=== PATIENT | male | born 1975 ===

== ENCOUNTER 2018-02-18 21:11 | Emergency (ER) | payer SELFPAY ==
[2018-02-18 22:18] VITALS: BP 131/82; PULSE 84; RESP 15; TEMP 98.7; O2SAT 99
--- NOTE | 2018-02-18 22:19 | ED PDOC ---
HPI: General Adult Time Seen by Provider: 02/18/18 22:12 Chief Complaint (Nursing): Abnormal Skin Integrity Chief Complaint (Provider): rash History Per: Patient (42 y/o male here with rash noted on palms and feet that began 1 month ago and became scars on palms of hand. Notes additional similar rash along inguinal region similar to h/o jock itch. Patient has h/o syphilis in past treated 2 years ago.) Past Medical History Reviewed: Historical Data, Nursing Documentation, Vital Signs Vital Signs: Last Vital Signs Temp 98.7 F 02/18/18 22:12 Pulse 84 02/18/18 22:12 Resp 15 02/18/18 22:12 BP 131/82 02/18/18 22:12 Pulse Ox 99 02/18/18 22:12 - Family History Family History: States: No Known Family Hx - Home Medications Home Medications: Ambulatory Orders Medication Instructions Recorded Butenafine HCl [Lotrimin Ultra] 0.5 gm TP BID #30 cream..g. 02/18/18 - Allergies Allergies/Adverse Reactions: Allergies Allergy/AdvReac Type Severity Reaction Status Date / Time No Known Allergies Allergy Verified 02/18/18 22:12 Review of Systems ROS Statement: Except As Marked, All Systems Reviewed And Found Negative Physical Exam - Reviewed Nursing Documentation Reviewed: Yes Vital Signs Reviewed: Yes - Physical Exam Appears: Positive for: Well, Non-toxic, No Acute Distress Head Exam: Positive for: ATRAUMATIC, NORMAL INSPECTION, NORMOCEPHALIC Skin: Positive for: Normal Color, Warm, Rash (circular hyperpigmented scars noted palmar surface bilateral palms.) Eye Exam: Positive for: EOMI, Normal appearance, PERRL ENT: Positive for: Normal ENT Inspection Neck: Positive for: Normal, Painless ROM Cardiovascular/Chest: Positive for: Regular Rate, Rhythm Respiratory: Positive for: CNT, Normal Breath Sounds Gastrointestinal/Abdominal: Positive for: Normal Exam, Soft Back: Positive for: Normal Inspection Extremity: Positive for: Normal ROM Neurologic/Psych: Positive for: Alert, Oriented - ECG O2 Sat by Pulse Oximetry: 99 Disposition - Clinical Impression Clinical Impression: Rash - Patient ED Disposition Is Patient to be Admitted: No - Disposition Referrals: [facility] [Outside] Disposition: Routine/Home Disposition Time: 22:35 Condition: FAIR Prescriptions: Butenafine HCl [Lotrimin Ultra] 0.5 gm TP BID #30 cream..g. Instructions: Skin Rash (DC)
== END 2018-02-18 22:51 | disposition home or self-care (01) ==
LOC: H.ER 21:11
DX: R21 Rash and other nonspecific skin eruption (principal)